=== PATIENT | male | born 1970 | race Caucasian/White ===

== ENCOUNTER 2023-12-17 03:43 | Emergency (ER) | payer MEDICAID ==
[~2023-12-17] VITALS: Ht 177.8 cm; Wt 90.7 kg
[2023-12-17 03:56] VITALS: BP_SYST 201; PULSE 114; RESP 18; TEMP 98; O2SAT 96
[2023-12-17 04:30] LABS: BASOPHILS % (AUTO) 0.1 % (0.0-2.0); EOSINOPHILS % (AUTO) 0.1 % (0.0-4.0); HEMATOCRIT 42.1 % (36-54); HEMOGLOBIN 14.1 g/dL (14.0-18.0); LYMPHOCYTES # (AUTO) 2.1 K/uL (1.0-5.5); LYMPHOCYTES % (AUTO) 9.5 % (20.5-51.5); MEAN CORPUSCULAR HEMOGLOBIN 29 pg (27-31); MEAN CORPUSCULAR HGB CONC 33 % (32-36); MEAN CORPUSCULAR VOLUME 86 fL (79.0-98.0); MONOCYTES # (AUTO) 0.7 K/uL (0.0-1.0); MONOCYTES % (AUTO) 3.3 % (1.7-9.3); NEUTROPHILS # (AUTO) 18.7 K/uL (1.8-7.7); PLATELET COUNT (AUTO) 473 K/uL (130-430); RED BLOOD CELL COUNT(AUTO) 4.88 MIL/uL (4.2-6.2); RED CELL DISTRIBUTION WIDTH 15.7 % (9.0-15.0); WHITE BLOOD COUNT (AUTO) 21.5 K/uL (4.8-10.8)
[2023-12-17 04:37] LABS: PROTHROMBIN TIME 10.5 SECS (9.5-12.5)
[2023-12-17] MEDS ORDERED: LABETALOL HCL 20 MG/4 ML CARTRIDGE IVP ONE ×2 (04:37→06:29)
[2023-12-17] MEDS: NS 1000 ML IV.SOLN IV ONE (04:43)
[2023-12-17 04:45] LABS: ALANINE AMINOTRANSFERASE 39 U/L (12-78); ALBUMIN 3.7 g/dL (3.4-4.8); ANION GAP 9 (5-15); ASPARTATE AMINOTRANSFERASE 35 U/L (10-37); BILIRUBIN,DIRECT 0.1 mg/dL (0.0-0.3); CALCIUM 9.3 mg/dL (8.4-11.0); CARBON DIOXIDE 34 mmol/L (23-29); CHLORIDE 101 mmol/L (98-107); CREATININE 0.72 mg/dL (0.55-1.30); GFR AFRICAN AMERICAN 146 mL/min (>90); GFR NON AFRICAN-AMERICAN 121 mL/min (>90); GLUCOSE 227 mg/dL (74-106); POTASSIUM 3.1 mmol/L (3.5-5.1); SODIUM SERUM 144 mmol/L (136-145); TOTAL BILIRUBIN 0.5 mg/dL (0.0-1.0); TOTAL PROTEIN, SERUM 9.3 g/dL (6.4-8.3); UREA NITROGEN, BLOOD 10 mg/dL (8-21)
[2023-12-17] MEDS: ONDANSETRON HCL 4 MG/2 ML VIAL IVP ONE (04:45)
[2023-12-17] MEDS: LABETALOL HCL 20 MG/4 ML CARTRIDGE IVP ONE (04:47)
[2023-12-17] MEDS: PIPERACILLIN/TAZO 3.375 GM in NS 50 ML IV ONE (04:51)
[2023-12-17] MEDS ORDERED: PIPERACILLIN/TAZOBACTAM 3.375 GM/VIAL (ZOSYN) IV ONE (04:53)
[2023-12-17] MEDS ORDERED: VANCOMYCIN HCL 1000 MG/VIAL IV ONE ×2 (04:54)
[2023-12-17] MEDS ORDERED: niCARdipine 25 MG in D5W 240 ML IV PRN (06:00)
[2023-12-17] MEDS ORDERED: niCARdipine 2.5 MG/ML, 10 ML VIAL (CARDENE) IV ONE ×2 (06:04→09:32)
[2023-12-17] MEDS: niCARdipine 25 MG in D5W 240 ML IV PRN (06:29)
[2023-12-17 06:38] LABS: BILIRUBIN,URINE NEGATIVE (NEGATIVE); CLARITY/URINE CLEAR (CLEAR); COLOR,URINE YELLOW (YELLOW); GLUCOSE,URINE TRACE (NEGATIVE); KETONES,URINE NEGATIVE (NEGATIVE); LEUKOCYTE ESTERASE ,URINE NEGATIVE (NEGATIVE); NITRITE, URINE NEGATIVE (NEGATIVE); PROTEIN URINE 1+ (NEGATIVE); UROBILINOGEN,URINE 0.2 (0.2-1.0)
[2023-12-17 06:45] LABS: BLOOD, URINE TRACE (NEGATIVE)
[2023-12-17] MEDS: levETIRAcetam 1,000 MG in NS 90 ML IV ONE (06:45)
[2023-12-17 06:49] LABS: BACTERIA,URINE RARE /HPF (None Seen); RBC,URINE 0-3 /HPF (0-3); WBC,URINE 0-3 /HPF (0-3)
[2023-12-17 06:50] LABS: MUCUS,URINE 1+ /LPF (None Seen); URINE AMORPHOUS PHOSPHATES 1+ /HPF (None Seen)
[2023-12-17] MEDS: DEXAMETHASONE SOD PHOSPHATE 10 MG/ML VIAL IVP ONE (06:55)
[2023-12-17 06:57] LABS: BARBITURATE, URINE NEGATIVE (NEG <=200); BENZODIAZEPINE, URINE NEGATIVE (NEG <=150); CANNABINOID, URINE NEGATIVE (NEG <=50); COCAINE, URINE NEGATIVE (NEG <=150); METHAMPHETAMINES SCREEN,URINE NEGATIVE (NEG <=500); OPIATE, URINE NEGATIVE (NEG <=100); PHENCYCLIDINE SCREEN,URINE NEGATIVE (NEG <=25); UR TRICYCLIC ANTIDEPRESSANTS NEGATIVE (NEG <=300); URINE AMPHETAMINE NEGATIVE (NEG <=500); URINE METHADONE NEGATIVE (NEG <=200); URINE OXYCODONE SCREEN NEGATIVE (NEG <=100)
[2023-12-17] MEDS: NACL 0.9% 1,000 ML IV ONE (07:55)
[2023-12-17] MEDS: KCL 20 mEq in 100 mL (PREMIX) 100 ML IV ONE (07:55)
[2023-12-17] MEDS: VANCOMYCIN HCL 1,000 MG in NS 250 ML IV ONE (08:00)
[2023-12-17] MEDS ORDERED: niCARdipine 50 MG in D5W 230 ML IV PRN (09:30)
[2023-12-17] MEDS: LABETALOL HCL 20 MG/4 ML CARTRIDGE IVP PRN (09:37)
[2023-12-17 10:30] VITALS: BP_SYST 136; PULSE 92; RESP 19; TEMP 98; O2SAT 95
== END 2023-12-17 10:29 | disposition short-term general hospital (02) ==
LOC: SED 03:43
DX: A41.9 Sepsis, unspecified organism (principal); I16.0 Hypertensive urgency; R11.2 Nausea with vomiting, unspecified; K59.00 Constipation, unspecified; J96.10 Chronic respiratory failure, unspecified whether with hypoxia or hypercapnia; R00.0 Tachycardia, unspecified; I10 Essential (primary) hypertension; E11.9 Type 2 diabetes mellitus without complications; J44.9 Chronic obstructive pulmonary disease, unspecified
CPT/HCPCS: 99291; 70450; 96365; 96366; 96375; 71045; 96367; 80307; 80076; 80048; 85025; 85610; 85730; 87040; 87086; 84484; 36415; 74176; 94640; 31720; 83605; 81001; 93005; 96376; 96368; J1100; J1953; J2405; J2543; J3370; J7060; J7030; 81000; 81015; 94002; J3480